=== PATIENT | female | born 1975 | race Caucasian/White ===

== ENCOUNTER 2019-07-24 11:47 | Outpatient (CLI) | payer OTHER, SELFPAY ==
--- NOTE | 2019-07-24 11:54 | XR_ITS ---
WS: [id number] ABDOMEN Supine view of the abdomen CLINICAL INFORMATION: hernia pain COMPARISON: None. FINDINGS: Cholecystectomy clips. Normal bowel gas pattern. Scattered stool in the colon. Normal lumbar spine. M ild fecal retention sigmoid colon. XR/XR abdomen 1V* [id number] IMPRESSION: Normal bowel gas pattern
--- NOTE | 2019-07-24 11:54 | XR_ITS ---
WS: [id number] SHOULDER RIGHT TECHNIQUE: 3 views of the right shoulder CLINICAL INFORMATION: right shoulder pain COMPARISON: None. FINDINGS: Normal acromioclavicular joint. Normal glenohumeral joint. Acromion is normal in appearance. Normal g lenoid. No evidence of acute fracture dislocation. XR/XR shoulder RT min 2V* [id number] IMPRESSION: Normal right shoulder.
--- NOTE | 2019-07-24 11:54 | XR_ITS ---
WS: [id number] KNEE LEFT TECHNIQUE: 3 views of the left knee CLINICAL INFORMATION: knee pain COMPARISON: None. FINDINGS: Left knee is normal in appearance. No evidence of acute fracture dislocation. No significant effusion . Patella is normal. Mild soft tissue edema. Mild medial compartment narrowing. Tiny chronic well-cor ticated osseous density adjacent to the tibial spine likely degenerative XR/XR knee LT 3V* [id number] IMPRESSION: Mild degenerative arthritis medial joint compartment
== END 2019-07-24 11:48 | disposition home or self-care (01) ==
LOC: RADWPI 11:51
PROVIDERS: Family Provider Nurse Practitioner; PCP Nurse Practitioner; Visit Provider Nurse Practitioner
DX: K46.9 Unspecified abdominal hernia without obstruction or gangrene (principal); M25.511 Pain in right shoulder; M17.12 Unilateral primary osteoarthritis, left knee
CPT/HCPCS: 73030; 73562; 74018

== ENCOUNTER 2020-03-17 07:38 | Outpatient (CLI) | payer OTHER, SELFPAY ==
--- NOTE | 2020-03-17 07:47 | MM_ITS ---
WS: [id number] BILATERAL DIGITAL SCREENING MAMMOGRAPHY WITH CAD CLINICAL INFORMATION: SCREENING HISTORY: Screening mammogram. No current complaints. COMPARISON: TECHNIQUE: Bilateral CC and MLO views. FINDINGS: Scattered fibroglandular densities bilaterally. No suspicious focal mass, asymmetry, calcifications, or architectural distortion. No evidence of malignancy. Punctate and lucent centered calcifications. Vascular calcification. MM/[place] [id number] IMPRESSION: BI-RADS: 2-Benign FOLLOW UP: 1 Year Follow-up Recommend return to annual screening mammography.
== END 2020-03-17 07:39 | disposition home or self-care (01) ==
LOC: RADSHAW 07:41
PROVIDERS: PCP Nurse Practitioner; Visit Provider Obstetrics & Gynecology
DX: Z12.31 Encounter for screening mammogram for malignant neoplasm of breast (principal)
CPT/HCPCS: 77067

== ENCOUNTER → 2020-04-03 15:35 | Outpatient (BNVA) | payer OTHER, SELFPAY | PROVIDERS: PCP Nurse Practitioner; Visit Provider Nurse Practitioner Family | DX: Z11.59 Encounter for screening for other viral diseases (principal); R06.02 Shortness of breath | CPT/HCPCS: 87635 ==

== ENCOUNTER → 2020-06-23 09:28 | Outpatient (BNVA) | payer OTHER, SELFPAY | PROVIDERS: PCP Nurse Practitioner; Visit Provider Nurse Practitioner | DX: K62.5 Hemorrhage of anus and rectum (principal) | CPT/HCPCS: 80053; 85025 ==

== ENCOUNTER → 2020-06-30 15:50 | Outpatient (BNVA) | payer OTHER, SELFPAY | PROVIDERS: PCP Nurse Practitioner; Referring Provider Nurse Practitioner; Visit Provider Surgery | DX: K92.1 Melena (principal); R73.9 Hyperglycemia, unspecified; Z11.59 Encounter for screening for other viral diseases | CPT/HCPCS: 83036; 84443; 86705; 86706; 86709; 86803; 87340 ==

== ENCOUNTER → 2020-09-10 12:13 | Outpatient (BNVA) | payer OTHER, SELFPAY | PROVIDERS: PCP Nurse Practitioner; Visit Provider Surgery | DX: Z01.812 Encounter for preprocedural laboratory examination (principal); Z20.822 Contact with and (suspected) exposure to COVID-19 | CPT/HCPCS: 87635 ==

== ENCOUNTER 2020-09-15 05:56 | Day surgery (SDC) | payer OTHER, SELFPAY ==
[2020-09-11 10:00] VITALS: BMI 63.2
[2020-09-15] MEDS: sodium chloride 0.9% 1,000 ML 30 ML IV (06:20)
[2020-09-15 06:30] VITALS: BP 151/71; PULSE 78; RESP 18; TEMP 36.9; O2SAT 94
[2020-09-15 06:31] LABS: Glucose Point of Care 131 mg/dL (70-110)
--- NOTE | 2020-09-15 06:32 | P.ANESASSM_ITS ---
Pre-Anesthetic Assessment Pre-Anesthetic Assessment: Height/Weight: Height 1.65 m Weight 172.365 kg Temp Pulse Resp BP Pulse Ox 98.4 F 78 18 151/71 94 09/15/20 06:30 09/15/20 06:30 09/15/20 06:30 09/15/20 06:30 09/15/20 06:30 Preop Diagnosis: diagnostic Proposed Procedure: Operation Date: 09/15/20 07:00 Proposed Procedures p Colonoscopy 40195 k92.1(Not Applicable) - Yuri Abdullahi MD Was Beta Jun taken within 24 hours: Yes Was Clonidine taken within 24 hours: N/A Last intake: Intake Last Liquid Date 09/14/20 Last Liquid Time 23:30 Last Solid Date 09/13/20 Exam: Pre-Anes Outpt Exam: alert, oriented x 3, clear to auscultation bilaterally and regular rate & rhythm Airway: Submandibular: WNL and Other Cervical ROM: Other (limited) MP: 2 Pulmonary: Pulmonary: None reported CV/HEM: CV/HEM: HTN : : None reported Hepatic: Hepatic: None reported Metabolic: Metabolic: Morbid obesity Musc/skel: Musc/skel: None reported Neuropsych: Neuropsych: Anxiety and Depression Anesthetic Plan: ASA status: 3 Anesthesia: MAC Meds/Allergies Current Medications: Current Medications Generic Name Dose Route Start Last Admin Trade Name Freq PRN Reason Stop Dose Admin Sodium Chloride 1,000 mls @ 30 ml s/hr 09/15/20 06:15 09/15/20 06:20 Sodium Chloride 0.9% IV 09/16/20 06:14 30 mls/hr .Q24H CHERYL Administration PFSH Anesthesia PFSH: Medical History (Updated 07/03/20 @ 23:49 by JEANIE Haines-Serge) Abdominal hernia Arthropathy of both hips Depression with anxiety Diabetes mellitus with hyperglycemia, without long-term current use of insulin Vitamin D deficiency, unspecified Surgical History History of carpal tunnel surgery of right wrist History of cholecystectomy (~1999) History of hernia repair (05/11/12) Performed at time of LSO. Dx: Incisional hernia. Performed by Dr. Gonzales at [facility] in [place], [place] History of laparoscopy (07/31/02) QASIM with drainage ovarian cyst, Hysteroscopy with D&C. Dx: Bilateral ovarian cyst, Menorrhagia. Performed by Dr. Crow at [facility] in [place], [place] History of rhinoplasty (~1996) History of salpingo-oophorectomy (05/11/12) Laparotomy with RSO, Extensive QASIM, cystotomy, Bladder cystotomy, Cystoscopy. Dx: Ovarian neoplasm. Performed by Dr. Crow at [facility] [place] in [place], [place]. extensive omental and bowel adhesions present. History of total abdominal hysterectomy (07/18/07) Dx: Menorrhagia, Uterine fibroids. Performed by Dr. Crow at [facility] [place] in [place], [place]. History of tubal ligation (~1995) Pilonidal abscess (09/01/17) I&D. Performed by Dr. Abdullahi at [facility] [place] in [place], [place] Family History Father Diabetes Hypertension Mother Hypertension Social History Smoking and tobacco status: former smoker Second hand smoke exposure: No Smoking risk assessment/counseling performed?: No Alcohol intake: current Alcohol intake frequency: holidays/special occasions only Desire information about alcohol rehabilitation?: No Counseling given: No Desire information about substance/drug rehabilitation?: No Counseling given: No Adopted: No Caregiver/support person: No Lives independently: Yes Household members: spouse Housing: House Marital status: Number of children: 2 service: No Current occupational status: employed Current occupation: [employer] Pets and animals: Yes History of recent travel: No Current gender identity: Female Data Anesthesia Other Labs: Laboratory Results - last 48 hr 09/15/20 06:29 POC Glucose 131 H Cardiac Studies: No Data to Display
--- NOTE | 2020-09-15 06:53 | W.PM.OPSFHP ---
Same Day Surgery H&P Indication for Procedure/HPI DATE OF PROCEDURE: September 15, 2020 CHIEF COMPLAINT/INDICATIONFOR SURGICAL PROCEDURE: hematochezia/ colonoscopy PREOP DIAGNOSIS: diagnostic PLANNED PROCEDRUE: Operation Date: 09/15/20 07:00 Proposed Procedures p Colonoscopy 56856 k92.1(Not Applicable) - Yuri Abdullahi MD Medications/Allergies* Home Medications Medication Instructions Recorded Confirmed Type celecoxib [Celebrex] 200 mg PO DAILY 09/11/20 09/15/20 History metformin 500 mg PO DAILY 09/11/20 09/15/20 History Allergies/Adverse Reactions Allergy/AdvReac Type Severity Reaction Status Date / Time No Known Allergies Allergy Verified 06/30/20 08:48 Current Medications: Generic Name Dose Route Start Last Admin Trade Name Freq PRN Reason Stop Dose Admin Sodium Chloride 1,000 mls @ 30 mls/hr 09/15/20 06:15 09/15/20 06:20 Sodium Chloride 0.9% IV 09/16/20 06:14 30 mls/hr .Q24H CHERYL Administration Pertinent History/Comorbid Conditions* Medical History (Updated 07/03/20 @ 23:49 by JEANIE Haines-C) Abdominal hernia Arthropathy of both hips Depression with anxiety Diabetes mellitus with hyperglycemia, without long-term current use of insulin Vitamin D deficiency, unspecified Surgical History (Updated 12/30/19 @ 14:48 by Robin Crow MD) History of carpal tunnel surgery of right wrist History of cholecystectomy (~1999) History of hernia repair (05/11/12) Performed at time of LSO. Dx: Incisional hernia. Performed by Dr. Gonzales at [facility] in [place], [place] History of laparoscopy (07/31/02) QASIM with drainage ovarian cyst, Hysteroscopy with D&C. Dx: Bilateral ovarian cyst, Menorrhagia. Performed by Dr. Crow at [facility] in [place], [place] History of rhinoplasty (~1996) History of salpingo-oophorectomy (05/11/12) Laparotomy with RSO, Extensive QASIM, cystotomy, Bladder cystotomy, Cystoscopy. Dx: Ovarian neoplasm. Performed by Dr. Crow at [facility] in [place], [place]. extensive omental and bowel adhesions present. History of total abdominal hysterectomy (07/18/07) Dx: Menorrhagia, Uterine fibroids. Performed by Dr. Crow at [facility] in [place], [place]. History of tubal ligation (~1995) Pilonidal abscess (09/01/17) I&D. Performed by Dr. Abdullahi at [facility] in [place], [place] Family History (Updated 12/28/19 @ 08:21 by Angeline Gottlieb LPN) Diabetes Father Hypertension Father Mother Social History Smoking and tobacco status: former smoker Second hand smoke exposure: No Smoking risk assessment/counseling performed?: No Alcohol intake: current Alcohol intake frequency: holidays/special occasions only Desire information about alcohol rehabilitation?: No Counseling given: No Desire information about substance/drug rehabilitation?: No Counseling given: No Adopted: No Caregiver/support person: No Lives independently: Yes Household members: spouse Housing: House Marital status: Number of children: 2 service: No Current occupational status: employed Current occupation: [employer] Pets and animals: Yes History of recent travel: No Current gender identity: Female Pertinent Exam Findings alert, oriented x 3 and regular rate & rhythm Recommendations Surgery/Procedure today Coding Level of Care Code Acute Application Administrator for Evert Rodriguez
[2020-09-15 07:37] VITALS: BP 135/82; PULSE 81; RESP 20; TEMP 36.1; O2SAT 95
[2020-09-15 07:40] VITALS: BP 135/82; PULSE 86; RESP 22; O2SAT 96
--- NOTE | 2020-09-15 07:40 | P.PCN_ITS ---
PACU note PACU note: VSS, Good respiratory effort, report to LOGISTICS DIRECTOR Post-Anesthesia Exam: awake
--- NOTE | 2020-09-15 07:40 | PM.PACU ---
PACU note PACU note: VSS, Good respiratory effort, report to PLANT SPRAYER Post-Anesthesia Exam: awake
[2020-09-15 07:56] VITALS: BP 144/76; PULSE 87; RESP 18; TEMP 36.3; O2SAT 95
[2020-09-15 08:03] VITALS: BP 120/65; PULSE 94; RESP 18; O2SAT 94
--- NOTE | 2020-09-15 09:38 | ANE.PACU2 ---
Inpatient post-anesthesia follow up: Airway intact: Yes Vital signs: Temperature 97.3 F Pulse Rate 94 Respiratory Rate 18 Blood Pressure 120/65 Pulse Oximetry 94 Oxygen Delivery Me thod Room Air Oxygen Flow Rate Fraction of Inspir ed Oxygen Hydration adequate: Yes Nausea and vomiting: No Pain level: 1 Mental status: Baseline
== END 2020-09-15 08:19 | disposition home or self-care (01) ==
PROVIDERS: PCP Nurse Practitioner; Visit Provider Surgery
PROC: 0DJD8ZZ Inspection of Lower Intestinal Tract, Via Natural or Artificial Opening Endoscopic (ICD-10-PCS; CPT 45378; principal; 2020-09-15 07:00)
DX: K92.1 Melena (principal); K57.30 Diverticulosis of large intestine without perforation or abscess without bleeding; K64.8 Other hemorrhoids; E11.65 Type 2 diabetes mellitus with hyperglycemia; Z87.891 Personal history of nicotine dependence; I10 Essential (primary) hypertension; E66.01 Morbid (severe) obesity due to excess calories; Z68.44 Body mass index [BMI] 60.0-69.9, adult
CPT/HCPCS: 36416; 45378; 82962; J2704; J7030

== ENCOUNTER 2020-11-14 12:42 | Outpatient (CLI) | payer OTHER, SELFPAY ==
[2020-11-14] MEDS: iohexol 300 mg/mL 50 mL Btl PO (14:11)
--- NOTE | 2020-11-14 14:30 | CT_ITS ---
WS: [id number] CT ABDOMEN AND PELVIS NONCONTRAST HISTORY: R34 - Anuria and oliguria TECHNIQUE: Imaging performed through the abdomen and pelvis. Coronal and sagittal reformats are submi tted. All CT scans at [facility] use at least one of these dose optimization techniques: automated exposure control; mA and/or kV adjustment per patient size (includes targeted exams where d ose is matched to clinical indication); or iterative reconstruction. DLP: 1963.69 mGy.cm COMPARISON: 10/10/2015 Lower thorax: Lung bases are clear. Visualized heart is normal. Small hiatal hernia. Liver: Hepatic steatosis with marked hepatomegaly. No mass. No bile duct dilatation. Gallbladder: Prior cholecystectomy. Pancreas: Normal size and attenuation. Normal pancreatic duct. No pancreatitis or mass. Spleen: Normal size with granulomata. Adrenal glands: Normal. No mass. Right kidney: Normal size kidney with no mass or hydronephrosis. Left kidney: Normal size kidney with no mass or hydronephrosis. Aorta: Atherosclerosis aorta. No aneurysm. No free fluid, intraperitoneal air or significant lymphadenopathy. GI tract: No GI tract obstruction. Herniation of nondilated small bowel and colon through the mid abd ominal wall. There is transverse colon and small bowel herniating through a large defect measuring 8. 4 cm. The appendix is normal. Abdominal wall: Very large abdominal hernia in the midline containing colon and small bowel with no o bstruction. Pelvis: Prior hysterectomy. Osseous structures: Unremarkable. CT/CT abdomen pelvis wo con [id number] IMPRESSION: 1. Large ventral abdominal wall hernia contains portions of colon and small burak wel. No obstruction. 2. Normal appendix. 3. Prior cholecystectomy and hysterectomy.
== END 2020-11-14 12:43 | disposition home or self-care (01) ==
LOC: RAD 12:43
PROVIDERS: PCP Nurse Practitioner; Visit Provider Nurse Practitioner
DX: R34 Anuria and oliguria (principal); K43.9 Ventral hernia without obstruction or gangrene; Z90.49 Acquired absence of other specified parts of digestive tract; Z90.710 Acquired absence of both cervix and uterus
CPT/HCPCS: 74176; 80053; 83036; 85025

== ENCOUNTER 2021-03-27 07:24 | Outpatient (CLI) | payer OTHER, SELFPAY ==
--- NOTE | 2021-03-27 07:33 | MM_ITS ---
WS: [id number] Bilateral screening digital mammogram, 03/27/2021 Clinical Data: SCREENING Comparison: 03/17/2020, 03/15/2019, 02/22/2018, 05/14/2016, 05/09/2015. Findings: The breast parenchymal pattern shows fibroglandular tissue. No spiculated masses or clustered calcifi cations are seen. There are no secondary signs of carcinoma. There are lymph nodes in both axilla. Th ere are benign calcifications in both breasts unchanged. MM/[place] [id number] Impression: 1. Negative bilateral mammogram unchanged. 2. Recommend annual screening mammograms. BIRADS: 1-Negative FOLLOW UP: 1 Year Follow-up The CAD grocery checker was used.
== END 2021-03-27 07:25 | disposition home or self-care (01) ==
LOC: RADSHAW 07:29
PROVIDERS: PCP Nurse Practitioner; Visit Provider Nurse Practitioner
DX: Z12.31 Encounter for screening mammogram for malignant neoplasm of breast (principal)
CPT/HCPCS: 77067

== ENCOUNTER → 2021-06-15 15:52 | Outpatient (BNVA) | payer OTHER, SELFPAY | PROVIDERS: PCP Nurse Practitioner; Visit Provider Nurse Practitioner | DX: E11.65 Type 2 diabetes mellitus with hyperglycemia (principal); M10.9 Gout, unspecified; F41.8 Other specified anxiety disorders; N95.1 Menopausal and female climacteric states; R60.0 Localized edema; L03.90 Cellulitis, unspecified; M16.0 Bilateral primary osteoarthritis of hip; M79.671 Pain in right foot; Z79.890 Hormone replacement therapy | CPT/HCPCS: 80053; 83036; 84550; 85025 ==

== ENCOUNTER → 2021-06-24 10:42 | Outpatient (BNVA) | payer OTHER, SELFPAY | PROVIDERS: PCP Nurse Practitioner; Visit Provider Nurse Practitioner | DX: Z20.822 Contact with and (suspected) exposure to COVID-19 (principal); R05.9 Cough, unspecified | CPT/HCPCS: 87635 ==

== ENCOUNTER 2021-10-08 08:40 | Emergency (ER) | payer OTHER, SELFPAY ==
[2021-10-08 09:02] VITALS: BP 179/86; RESP 18; TEMP 37.1; O2SAT 96; BMI 49.9
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
[2021-10-08 09:32] LABS: Basophils # 0.1 10^3/uL (0.0-0.1); Basophils % 0.9 %; Eosinophils # 0.2 10^3/uL (0.0-0.8); Hematocrit 41.6 % (37.0-47.0); Hemoglobin 13.4 g/dL (11.5-15.3); Lymphocytes # 1.4 10^3/uL (0.8-4.8); Lymphocytes % 20.9 %; Mean Corpuscular HGB Conc 32.2 g/dL (30.0-36.0); Mean Corpuscular Hemoglobin 31.4 pg (28.0-34.0); Mean Corpuscular Volume 97.4 fl (81-99); Mean Platelet Volume 9.2 fL (7.4-10.4); Monocytes # 0.4 10^3/uL (0.2-0.9); Monocytes % 5.4 %; Neutrophils % 69.7 %; Nucleated Red Blood Cells % 0 %; Platelet Count 246 10^3/cmm (130-400); Red Blood Count 4.27 10^6/uL (4.1-5.3); Red Cell Distribution Width 12.8 % (12.1-15.1); White Blood Count 6.9 10^3/uL (4.0-10.0)
[2021-10-08 09:53] LABS: Alanine Aminotransferase 53 U/L (0-33); Alkaline Phosphatase 130 IU/L (35-105); Anion Gap 14.3 (5-19); Aspartate Amino Transferase 57 U/L (0-32); Blood Urea Nitrogen 9 mg/dL (6-20); Calcium 9.6 mg/dL (8.5-10.5); Carbon Dioxide 27 mmol/L (22-29); Chloride 104 mmol/L (98-107); Globulin 3.4 g/dL (1.3-4.6); Glomerular Filtration Rate 106.7 mL/min (90-130); Glucose 158 mg/dL (65-115); Osmolality Calculated 294 mOsm/kg (285-295); Potassium 4.3 mmol/L (3.5-5.1); Sodium 141 mmol/L (136-145); Total Bilirubin 0.3 mg/dL (0.15-1.2); Total Protein 7.4 g/dL (6.6-8.7)
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
[2021-10-08 10:19] LABS: Add Urine Microscopic? NO; Charge for UA Resulting for Rev
[2021-10-08 10:25] LABS: Bilirubin Urine Neg (Negative); Blood Urine Neg (Negative); Glucose Urine UA Norm (Normal); Ketones Urine Negative (Negative); Leukocyte Esterase Urine Negative (Negative); Nitrate Urine Negative (Negative); Protein Urine Neg (Negative); Urine Appearance Clear (CLEAR); Urine Color Yellow (Yellow); Urobilinogen Urine Neg (Negative); pH Urine 6.5 (5-7)
--- NOTE | 2021-10-12 09:53 | DCPLANNER ---
Addendum entered by Linda Holm 10/23/21 08:34: Patient had a follow up appointment scheduled for with ortho - patient did attend appointment. Addendum entered by Linda Holm 10/14/21 21:38: Patient had a follow up appointment scheduled for Saturday, October 16, 2021 at 8:[address] Jolly at ortho. Clinic will call patient with appointment information. Original Note: exhibitions and collections manager had message to schedule a follow up appointment for patient with ortho. exhibitions and collections manager sent patients information to the front staff at ortho. Patients information will be printed and reviewed. Clinic will call patient with appointment information.
== END 2021-10-08 12:14 | disposition home or self-care (01) ==
PROVIDERS: Emergency Provider Family Medicine; PCP Nurse Practitioner
DX: S62.306A Unspecified fracture of fifth metacarpal bone, right hand, initial encounter for closed fracture (principal); V89.2XXA Person injured in unspecified motor-vehicle accident, traffic, initial encounter; Y92.410 Unspecified street and highway as the place of occurrence of the external cause; M79.671 Pain in right foot
CPT/HCPCS: 29125; 36415; 72125; 73130; 73630; 80053; 81003; 85025; 99283

== ENCOUNTER 2021-10-16 08:47 | Outpatient (CLI) | payer OTHER, SELFPAY | END 2021-10-16 08:48 | disposition home or self-care (01) | LOC: SPT 08:48 | PROVIDERS: Visit Provider Orthopaedic Surgery | DX: Z46.89 Encounter for fitting and adjustment of other specified devices (principal); S62.308D Unspecified fracture of other metacarpal bone, subsequent encounter for fracture with routine healing; X58.XXXD Exposure to other specified factors, subsequent encounter | CPT/HCPCS: 97760; L3984 ==

== ENCOUNTER 2021-11-04 13:09 | Outpatient (CLI) | payer OTHER, SELFPAY ==
[2021-11-04 13:50] LABS: Basophils # 0.1 10^3/uL (0.0-0.1); Basophils % 0.6 %; Eosinophils # 0.2 10^3/uL (0.0-0.8); Eosinophils % 2.2 %; Hematocrit 42.3 % (37.0-47.0); Hemoglobin 13.2 g/dL (11.5-15.3); Lymphocytes # 2.6 10^3/uL (0.8-4.8); Lymphocytes % 25.2 %; Mean Corpuscular HGB Conc 31.2 g/dL (30.0-36.0); Mean Corpuscular Hemoglobin 31.5 pg (28.0-34.0); Mean Platelet Volume 9.6 fL (7.4-10.4); Monocytes # 1.1 10^3/uL (0.2-0.9); Monocytes % 11.2 %; Neutrophils # 6.13 10^3/uL (1.8-7.7); Neutrophils % 60.4 %; Nucleated Red Blood Cells % 0 %; Platelet Count 236 10^3/cmm (130-400); Red Blood Count 4.19 10^6/uL (4.1-5.3); Red Cell Distribution Width 13.4 % (12.1-15.1); White Blood Count 10.1 10^3/uL (4.0-10.0)
[2021-11-04 14:15] LABS: Alanine Aminotransferase 36 U/L (0-33); Albumin Level 4.1 g/dL (3.5-5.2); Alkaline Phosphatase 110 IU/L (35-105); Anion Gap 14.1 (5-19); Aspartate Amino Transferase 34 U/L (0-32); Blood Urea Nitrogen 9 mg/dL (6-20); Calcium 9.1 mg/dL (8.5-10.5); Carbon Dioxide 29 mmol/L (22-29); Chloride 101 mmol/L (98-107); Glomerular Filtration Rate 89.3 mL/min (90-130); Glucose 122 mg/dL (65-115); Osmolality Calculated 290 mOsm/kg (285-295); Potassium 4.1 mmol/L (3.5-5.1); Sodium 140 mmol/L (136-145); Total Bilirubin 0.4 mg/dL (0.15-1.2); Total Protein 8.1 g/dL (6.6-8.7)
== END 2021-11-04 13:10 | disposition home or self-care (01) ==
PROVIDERS: Visit Provider Nurse Practitioner
DX: L03.90 Cellulitis, unspecified (principal)
CPT/HCPCS: 80053; 85025

== ENCOUNTER → 2021-11-11 08:51 | Outpatient (BNVA) | payer OTHER, SELFPAY | PROVIDERS: Visit Provider Orthopaedic Surgery | DX: S62.396A Other fracture of fifth metacarpal bone, right hand, initial encounter for closed fracture (principal); X58.XXXA Exposure to other specified factors, initial encounter | CPT/HCPCS: 73130 ==

== ENCOUNTER → 2022-03-03 11:17 | Outpatient (BNVA) | payer OTHER, SELFPAY | PROVIDERS: PCP Nurse Practitioner; Visit Provider Nurse Practitioner | DX: N39.0 Urinary tract infection, site not specified (principal); R30.0 Dysuria; E11.65 Type 2 diabetes mellitus with hyperglycemia | CPT/HCPCS: 81003 ==

== ENCOUNTER 2022-03-31 08:13 | Outpatient (CLI) | payer OTHER, SELFPAY ==
--- NOTE | 2022-03-31 08:18 | MM_ITS ---
WS: [id number] BILATERAL SCREENING DIGITAL TOMOSYNTHESIS MAMMOGRAM WITH CAD HISTORY: Z12.39 - Encounter for other screening for malignant neoplasm. COMPARISON: 03/27/2021 and 03/17/2020 Bilateral CC and MLO views with tomosynthesis and synthetic mammography submitted. Computer aided det ection analyzed. Breast composition: There are scattered areas of fibroglandular density. No suspicious masses, microc alcifications or architectural distortion. Benign coarse calcifications in each breast. MM/[place] [id number] IMPRESSION: BI-RADS: 2-Benign FOLLOW UP: 1 Year Follow-up
== END 2022-03-31 08:14 | disposition home or self-care (01) ==
LOC: RAD 08:13
PROVIDERS: PCP Nurse Practitioner; Visit Provider Nurse Practitioner
DX: Z12.31 Encounter for screening mammogram for malignant neoplasm of breast (principal)
CPT/HCPCS: 77063; 77067

== ENCOUNTER → 2022-09-15 10:47 | Outpatient (BNVA) | payer BC, SELFPAY | PROVIDERS: PCP Nurse Practitioner; Visit Provider Nurse Practitioner | DX: E11.65 Type 2 diabetes mellitus with hyperglycemia (principal) | CPT/HCPCS: 80053; 80061; 83036 ==

== ENCOUNTER → 2023-06-28 09:23 | Outpatient (BNVA) | payer BC, SELFPAY | PROVIDERS: PCP Nurse Practitioner; Visit Provider Nurse Practitioner | DX: E11.65 Type 2 diabetes mellitus with hyperglycemia (principal) | CPT/HCPCS: 80053; 80061; 81000; 82043; 82607; 83036; 84443 ==

== ENCOUNTER → 2024-09-04 10:34 | Outpatient (BNVA) | payer OTHER, SELFPAY | PROVIDERS: PCP Nurse Practitioner; Visit Provider Nurse Practitioner | DX: E11.65 Type 2 diabetes mellitus with hyperglycemia (principal); R39.9 Unspecified symptoms and signs involving the genitourinary system | CPT/HCPCS: 80053; 80061; 81000; 83036; 87077; 87086; 87184 ==

== ENCOUNTER 2024-09-17 06:43 | Emergency (ER) | payer OTHER, SELFPAY ==
[2024-09-17 06:50] VITALS: BP 178/105; PULSE 81; RESP 18; TEMP 36.8; O2SAT 94; BMI 60.0
--- NOTE | 2024-09-17 06:58 | ED_ITS ---
HPI - Skin/Abscess/Foreign Bdy General: Chief complaint: Skin/Abscess/Foreign Body Stated complaint: sores in groin area Time Seen by Provider: 09/17/24 06:51 History of Present Illness: 49-year-old female presents to the emerg ency room with complaints of boils to the labia. She is concerned she may have had an allergic reaction to using Alas in the genital region. She has had these in the past. Patient is diabetic. She recently finished a course of antibiotics for a bladder infection (Cipro). Associated symptoms: Deny chills or fever(s) Related Data Previous Rx's ?Medication ?Instructions ?Recorded furosemide 20 mg tablet (Lasix) See Rx Instructions PO QAM #180 06/28/23 tabs potassium chloride 10 mEq 10 meq PO QDAY #90 tabs 06/07 08/27 tablet,extended release celecoxib 200 mg capsule (Celebrex) 200 mg PO Q12H #18 0 caps 09/04/24 duloxetine 20 mg capsule,delayed 20 mg PO BID #180 cap s 09/04/24 release (Cymbalta) metformin 500 mg tablet,extended 500 mg PO DAILY #90 t abs 09/04/24 release 24 hr propranolol 60 mg tablet 60 mg PO Q12H #180 tabs 04/0 06/30 semaglutide 3 mg tablet (Rybelsus) 3 mg PO DAILY #90 t abs 09/04/24 ciprofloxacin HCl 250 mg tablet 250 mg PO Q12H #14 tab s 09/06/24 (Cipro) hydrocodone 5 mg-acetaminophen 325 1 tab PO Q6H PRN pa in #12 tabs 09/17/24 mg tablet sulfamethoxazole 800 1 tab PO BID 7 days #14 tabs 09/17/24 mg-trimethoprim 160 mg tablet (Bactrim DS) Allergies Allergy/AdvReac Type Severity Reaction Status Date / Time No Known Allergies Allergy Verified 09/04/24 10:06 Review of Systems Const: Denies: fever(s) or chills : Denies: dysuria, urinary frequency or urinary urgency Skin/Breast: Reports: new lesions PFSH ED PFSH: Medical History Recurrent incisional hernia Diabetes mellitus with hyperglycemia, without long-term current use of insulin Abdominal hernia Depression with anxiety Arthropathy of both hips Vitamin D deficiency, unspecified Surgical History Status post colonoscopy (09/15/20) diverticulosis Pilonidal abscess (09/01/17) I&D. Performed by Dr. Abdullahi at [facility] in [place], [place] History of total abdominal hysterectomy (07/18/07) Dx: Menorrhagia, Uterine fibroids. Performed by Dr. Crow at [facility] in [place], [place]. History of rhinoplasty (~1996) History of carpal tunnel surgery of right wrist History of cholecystectomy (~1999) History of laparoscopy (07/31/02) QASIM with drainage ovarian cyst, Hysteroscopy with D&C. Dx: Bilateral ovarian cyst, Menorrhagia. Performed by Dr. Crow at [facility] in [place], [place] History of hernia repair (05/11/12) Performed at time of LSO. Dx: Incisional hernia. Performed by Dr. Gonzales at [facility] in [place], [place] History of tubal ligation (~1995) History of salpingo-oophorectomy (05/11/12) Laparotomy with RSO, Extensive QASIM, cystotomy, Bladder cystotomy, Cystoscopy. Dx: Ovarian neoplasm. Performed by Dr. Crow at [facility] in [place], [place]. extensive omental and bowel adhesions present. Family History Father Diabetes Hypertension Mother Hypertension Social History Smoking and tobacco/nicotine status: never used tobacco/nicotine Second hand smoke exposure: No Alcohol intake: current Alcohol intake frequency: holidays/special occasions only Substance/Drug Use: never Adopted: No Caregiver/support person: No Lives independently: Yes Household members: spouse Housing: House Marital status: Number of children: 2 service: No Current occupational status: employed Current occupation: [employer] Pets and animals: Yes Do you think of yourself as: Straight/Heterosexual Current gender identity: Female Physical Exam Const: COMMON NORMALS: no acute distress GENERAL APPEARANCE: cooperative and comfortable ORIENTATION/CONSCIOUSNESS: Yes awake, Yes oriented to person, Yes oriented to place and Yes oriented to time HENMT: COMMON NORMALS: normocephalic, atraumatic and hearing grossly normal bilaterally HEAD & SCALP: normocephalic and atraumatic Extremity: COMMON NORMALS: normal to inspection, capillary refill normal, no clubbing, cyanosis or edema, no calf tenderness and no pedal edema Neuro: SENSORIUM/ORIENTATION: Yes oriented to person, Yes oriented to place and Yes oriented to time Skin: OTHER: Indurated lesions larger lesion on the upper aspect of the right labia majora smaller lesion on the left also in the superior aspect. No active drainage there is some eschar present overlying the left labial lesion. Does not extend to the perineum. Procedures Abscess I/D Site: other (Labia) Side (if applicable): left and right Local Anesthetic: lidocaine 1% and with epi Amount of anesthesia used (mL): 7 Technique: incised with #11 blade Amount of fluid expressed (mL): 5 Packing used?: plain Course Vital Signs: Vital signs: Vital Signs Temperature 98.3 F 09/17/24 06:50 Pulse Rate 62 09/17/24 08:04 Respiratory Rate 18 09/17/24 06:50 Blood Pressure 109/61 09/17/24 08:04 Pulse Oximetry 92 09/17/24 08:04 Oxygen Delivery Me thod Room Air 09/17/24 06:50 MDM - Skin/Abscess/Foreign Bdy Medicial Decision Making Incision and drainage of abscess small amount of fluid drained wounds packed referred to case management for follow-up in the next 1 to 2 days start her on oral antibiotics. No radiology studies performed this visit Discharge Plan Discharge Patient Disposition: Home Clinical Impression: Abscess of left genital labia, Abscess of right genital labia Condition: Stable Prescriptions: New sulfamethoxazole-trimethoprim [Bactrim DS] 800-160 mg tablet 1 tab PO BID 7 Days Qty: 14 0RF hydrocodone-acetaminophen 5-325 mg tablet 1 tab PO Q6H PRN (Reason: pain) Qty: 12 0RF No Action furosemide [Lasix] 20 mg tablet See Rx Instructions PO QAM Qty: 180 1RF Rx Instructions: 20-40mg PO every morning; potassium chloride 10 mEq tablet extended release 10 meq PO QDAY Qty: 90 1RF celecoxib [Celebrex] 200 mg capsule 200 mg PO Q12H Qty: 180 1RF duloxetine [Cymbalta] 20 mg capsule,delayed release(DR/EC) 20 mg PO BID Qty: 180 1RF metformin 500 mg tablet extended release 24 hr 500 mg PO DAILY Qty: 90 1RF propranolol 60 mg tablet 60 mg PO Q12H Qty: 180 1RF Rybelsus 3 mg tablet 3 mg PO DAILY Qty: 90 1RF ciprofloxacin HCl [Cipro] 250 mg tablet 250 mg PO Q12H Qty: 14 0RF Discharge Orders: Discharge ED (Routine); Ordered 09/17/24 Ordered By: Dony Trinidad Referrals: Jose Wilcox, [facility]CER PROGRAM CONSULTANT[facility] [Primary Care Provider] - Discharge Diet: Usual diet Discharge Activity: Increase activity as tolerated Patient Instructions: Opioid Safety, Pain Management Activity Restrictions/Additional Instructions: Thank you for choosing [facility] for your healthcare needs today. It is very important that you follow up as instructed or that you return to the Emergency Department should you have concerns or if your condition changes or worsens in any way. You were seen in the emergency room with abscess in the genital area. These were incised and drained with local anesthetic cultures were done. Recommend that you start on oral antibiotics Bactrim DS 1 tablet twice a day for 7 days. You are also given pain medications to use as needed. The wounds were packed with gauze this should be replaced tomorrow case management is working on making an appointment for you with the women's health clinic. Print Language: Khmer Coding Level of Care Code ED Endless Track Vehicle Supervisor for Evert Rodriguez
[2024-09-17] MEDS: lidocaine-epi 1% 20 mL INJ INJECTION (07:22)
--- NOTE | 2024-09-17 07:23 | PC.NURSE ---
LIDOCAINE WITH EPI GIVEN TO PROVIDER FOR ADMINISTRATION.
[2024-09-17 08:04] VITALS: BP 109/61; PULSE 62; O2SAT 92
--- NOTE | 2024-09-17 19:06 | DCPLANNER ---
spoke with women health about follow up appointment, they will reach out to the patient to schedule. Dr. Trinidad said mid level in the next day or so would be okay.
== END 2024-09-17 08:07 | disposition home or self-care (01) ==
PROVIDERS: Emergency Provider Family Medicine; PCP Nurse Practitioner
DX: N76.4 Abscess of vulva (principal); Z79.84 Long term (current) use of oral hypoglycemic drugs; E11.9 Type 2 diabetes mellitus without complications
CPT/HCPCS: 56405; 87070; 87075; 87077; 87186; 87205; 99283; J9999

== ENCOUNTER → 2025-01-23 10:47 | Outpatient (BNVA) | payer OTHER, SELFPAY | PROVIDERS: PCP Nurse Practitioner; Visit Provider Nurse Practitioner | DX: E11.9 Type 2 diabetes mellitus without complications (principal) | CPT/HCPCS: 80053; 83036 ==

== ENCOUNTER → 2025-02-07 15:18 | Outpatient (BNVA) | payer OTHER, SELFPAY | PROVIDERS: PCP Nurse Practitioner; Visit Provider Nurse Practitioner | DX: R39.9 Unspecified symptoms and signs involving the genitourinary system (principal) | CPT/HCPCS: 81000; 87086 ==